=== PATIENT | male | born 1990 | race Hispanic/Latino ===

== ENCOUNTER 2025-07-25 20:32 | Emergency (ER) | payer SELFPAY ==
[2025-07-26] MEDS ORDERED: Boostrix 0.5 ML (Tdap) VIAL (>/=7 yrs of age) ONE (02:37)
== END 2025-07-26 02:55 | disposition home or self-care (01) ==
LOC: ERS 20:32
DX: S91.212A Laceration without foreign body of left great toe with damage to nail, initial encounter (principal); Z23 Encounter for immunization; W22.8XXA Striking against or struck by other objects, initial encounter
CPT/HCPCS: 12044; 90471; 90715; J0665